=== PATIENT | male | born 1980 | race Caucasian/White ===

== ENCOUNTER 2017-01-28 03:57 | Emergency (ER) | payer OTHER ==
[~2017-01-28] VITALS: Ht 190.5 cm; Wt 113.6 kg
[2017-01-28 03:58] VITALS: BP 132/81; PULSE 88; RESP 16; O2SAT 97
--- NOTE | 2017-01-28 04:03 | ED.REPORT ---
HPI-Hand Prob/Inj Date of Service Jan 28, 2017 ED Provider: Dr. Dale De Santiago M.D. The patient is a 36 year old male who presents to the ED with a right second finger laceration onset just prior to arrival. 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 The patient requests bloodborne pathogen testing. He denies additional injury/trauma or other symptoms. Nursing Notes Stated Complaint: FINGER LACERATION Chief Complaint: Extremity Trauma Nursing Notes Reviewed: Yes Allergies: Coded Allergies: baclofen (Verified Allergy, Severe, ANGIODEMA, 04/29/14) General Time Seen by Provider: 04:02 Chief Complaint Other (Right Second Finger Laceration) Hx Obtained From: Patient Arrived By: Walk-in Onset Occurred: Just prior to arrival Symptom Duration: Since onset Location: Right Hand: : Finger... (Index) Quality: Painful Severity: Current: Moderate Severity: Maximum: Moderate Pertinent Negative: Relieved by nothing Immunizations: Unknown Recent Healthcare: No recent doctor visit Past Medical History Past Medical History None reported Past Surgical History None reported Smoking History Unknown if Ever Smoker Ambulatory Status Independent Review of Systems Review of Systems Note: + Right second finger laceration Constitutional: Denies: Fever Musculoskeletal: Reports: Extremity pain (Right Second Finger) Complete sys rev & neg: except as marked. Respiratory: Denies: Non-productive cough, Shortness of breath GI: Denies: Diarrhea, Vomiting Physical Exam Initial Vital Signs Vital Signs (First) Date Time Temp Pulse Resp B/P Pulse Ox O2 Delivery O2 Flow Rate FiO2 01/28/17 03:58 36.5 88 16 132/81 97 Room Air Initial VS: Reviewed, Vital signs normal Head / Eyes: Atraumatic, Normocephalic ENT: Conjunctiva normal, No scleral icterus Neck: Supple, Full range of motion Skin: Warm, Dry, No cyanosis Neurologic: Alert, Oriented, Nonfocal Psychiatric: Mood/affect normal, Behavior normal, Normal thought content Wrist / Hand: Full range of motion Trauma / Burn / Environmental: Positive: Laceration (Superficial scratch over dorsum of right index PIP joint knuckle) General/Constitutional: Awake, Alert Interpretation & Diagnostics Lab Results Interpretation Test 01/28/17 04:35 HIV (1&2) Antibody Rapid Negative (Negative) Re-Eval/Medical Decision Med Decision/Clinical Course 36-year-old male who was scratched by the patient during a code acevedo. She has open wounds on her abdomen which she has been picking, likely with the same fingernails that scratched him. Re-Evaluation/Progress : Time of Eval: 05:11 Patient Status: Condition improved Re-Evaluation/Progress Note: Discussed with patient plan for labs. He will be discharged back to the floor to continue working and will return for lab results and discharge instructions. Discharge & Departure Primary Impression: Exposure to blood-borne pathogen Disposition: Home Discharge Condition All VS Reviewed: Yes Condition: Improved Patient Instructions: Body Substance Exposure (ED) Additional Instructions: This is a low risk exposure. Rapid HIV is negative. The remainder of the donor patient's lab work is pending. Contact occupational medicine for further evaluation and treatment. Referrals: Marleny Eaton MD (PCP) Scribe Attestation Portions of this note were transcribed by Shelly Lopez. I, Dr. De Santiago, personally performed the history, physical exam, and medical decision-making; I reviewed and confirmed the accuracy of the information in the transcribed note. Signed by: Milad Armstrong, 01/28/2017, 06:15 copies to: Marleny Eaton MD, Howard L MD Jan 28, 2017 04:03 SHELLY LOPEZ Jan 28, 2017 04:11
[2017-01-28 05:18] VITALS: BP 139/86; PULSE 84; RESP 16; O2SAT 99
== END 2017-01-28 05:19 ==
LOC: SED 03:57
DX: Z77.21 Contact with and (suspected) exposure to potentially hazardous body fluids (principal); Z88.8 Allergy status to other drugs, medicaments and biological substances; W50.4XXA Accidental scratch by another person, initial encounter; Y92.238 Other place in hospital as the place of occurrence of the external cause; Y93.89 Activity, other specified; Y99.0 Civilian activity done for income or pay
CPT/HCPCS: 36415; 86706; 87340; 99283; G0432; G0433